=== PATIENT | male | born 1955 | race Caucasian/White ===

== ENCOUNTER 2018-05-05 07:12 | Day surgery (SDC) | payer OTHER ==
[2018-05-04 10:59] VITALS: BMI 29.2
== END 2018-05-05 09:16 | disposition home or self-care (01) ==
LOC: JASU-SURG 07:12
PROVIDERS: ATTEND Podiatrist Foot Surgery
PROC: 0QBQ0ZZ Excision of Right Toe Phalanx, Open Approach (ICD-10-PCS; principal; 2018-05-05)
DX: Z53.8 Procedure and treatment not carried out for other reasons (principal)
CPT/HCPCS: 73630-TC-RT-FY; 82962

== ENCOUNTER 2020-05-23 04:46 | Day surgery (SDC) | payer OTHER ==
[2020-05-22 10:25] VITALS: BMI 29.9
[2020-05-23] MEDS ORDERED: PROPOFOL 20 ML ONE ×3 (07:26→08:57)
[2020-05-23] MEDS ORDERED: MIDAZOLAM HCL 2 MG/2 ML SINGLE DOSE VIAL ONE (07:26)
[2020-05-23] MEDS ORDERED: SUCCINYLCHOLINE CHLORIDE 200 MG/10 ML SYRINGE ONE (07:26)
[2020-05-23] MEDS ORDERED: ceFAZolin SODIUM 1 GM VIAL ONE (07:29)
[2020-05-23] MEDS ORDERED: SODIUM CHLORIDE 0.9% P/F 10 ML VIAL IJ ONE (07:29)
[2020-05-23] MEDS ORDERED: LIDOCAINE HCL/PF 2% SDV 5ML VIAL ONE (07:29)
[2020-05-23] MEDS ORDERED: DEXAMETHASONE SOD PHOSPHATE 4 MG/1 ML VIAL ONE (07:55)
[2020-05-23] MEDS ORDERED: LIDOCAINE HCL 1%, 10 MG/ML (20ML VIAL) ONE (07:56)
[2020-05-23] MEDS ORDERED: ceFAZolin SODIUM 1 GM VIAL IVPB ONE ×2 (08:30→09:36)
[2020-05-23] MEDS ORDERED: LIDOCAINE HCL 1%, 10 MG/ML (20ML VIAL) NR ONE (08:34)
[2020-05-23] MEDS ORDERED: BUPIVACAINE HCL/PF 0.5% (5MG/ML) 10 ML VIAL IJ ONE (08:34)
[2020-05-23] MEDS ORDERED: BACITRACIN 50,000 UNITS VIAL TP ONE (09:00)
[2020-05-23] MEDS ORDERED: KETOROLAC TROMETHAMINE 30 MG/1 ML VIAL ONE (09:37)
[2020-05-23] MEDS ORDERED: DEXAMETHASONE SOD PHOSPHATE 4 MG/1 ML VIAL NR ONE (09:40)
[2020-05-23] MEDS ORDERED: BUPIVACAINE HCL/PF 0.5% (5MG/ML) 10 ML VIAL NR ONE (09:40)
[2020-05-23 10:15] VITALS: TEMP 97
[2020-05-23 12:08] VITALS: BP 145/71; PULSE 64
--- NOTE | 2020-05-23 12:16 | OP ---
Operative Note - Note: Operative Date: 05/23/20 Pre-Operative Diagnosis: Hallux limitus/valgs right foot. Hammer toe 2nd toe right foot Operation: Modified Marcelo Youngswick osteotomy with 2.4mm osteomed x 20mm screw fixation. Arthroplasty proximal interphalangeal joint 2nd toe right foot. Medial exostectomy right remaining proximal phalanx 2nd toe right foot. Findings: hypertrophic bone and soft tissue Implants: 2.4mm osteomed screw patially threaded non cannulated 20mm Post-Operative Diagnosis: Same as Pre-op Surgeon: Parmjit Birch Motor Assembler: Salbador Nam Specimens Removed: bone and soft tissue Estimated Blood Loss (mls): 5
--- NOTE | 2020-05-25 21:12 | OP ---
DATE OF OPERATION: 05/23/2020 SURGEON: Parmjit Birch DPM PENSION MANAGER: Salbador Nam DPM PREOPERATIVE DIAGNOSIS: Hallux limitus/valgus, right foot with hammertoe, 2nd toe, right foot. POSTOPERATIVE DIAGNOSIS: Hallux limitus/valgus, right foot with hammertoe, 2nd toe, right foot. PROCEDURE: Modified Marcelo-Youngswick bunionectomy with 2.4-mm screw fixation. ANESTHESIA: Local with sedation. DESCRIPTION OF PROCEDURE: After noting all preoperative vital signs to be within normal limits and after surgical consent was signed and witnessed, the patient was brought to the OR, placed on a table in supine position. An IV line had been started prior to the patient coming to the OR. Once the patient was in the OR, the patient was sedated, and a local infiltrate was given in a Moran block fashion around the 1st metatarsophalangeal joint, as well as the 2nd metatarsophalangeal joint. Once this was done, the patient's foot was then prepped and draped in usual sterile fashion, and a well-padded ankle tourniquet had been applied prior to the prep. Once the prep was done, the foot was elevated and exsanguinated after being draped. Once it was draped, the tourniquet was elevated to 250 mmHg on the right ankle. Once this was done, attention was directed to the 1st metatarsophalangeal joint where a 6-cm-long, curvilinear incision was created. This incision was deepened using sharp and blunt dissection to the level of the joint capsule. All unavoidable vessels were ligated in usual fashion. All other neurovascular structures were retracted out of the surgical site. At this time, an inverted L incision was created over the 1st metatarsophalangeal joint, exposing the dorsal medial eminence. Utilizing sharp and blunt dissection, the capsule was reflected proximally in an inverted L fashion, exposing the 1st metatarsophalangeal joint. The dorsal part of the submetatarsal joint was examined. It was noted to be hypertrophic, as well as the medial aspect. Utilizing a McGlamry elevator, the sesamoids were liberated from the plantar surface of the 1st metatarsal head. Once this was done, a sagittal saw was utilized to resect the medial eminence. Once this was done, the foot was placed on its side, and Marcelo osteotomy was created. The sagittal saw was then utilized to remove an additional wedge of bone on the dorsal cut, which modified it to a Youngswick. At this time, the capital fragment was moved proximally and impacted on the head, getting plantar flexion and shortening of the 1st metatarsal. A 0.062-inch K- wire was put into place at this time for temporary fixation. Once temporary fixation was put into place, the range of motion was monitored and noted to be excellent compared to prior to the osteotomy. Once this was done, utilizing strict AO technique, a 2.4-mm Osteomed partially-threaded, full-core screw was put into place. The 0.062 wire was resected. Toe was put through a range of motion, noted to have excellent alignment and range of motion. The wound was then flushed with copious amounts of sterile saline that had antibiotic added to it. The area then was once again examined. Utilizing a sagittal saw, the dorsal eminence was resected and sent down to Pathology. Utilizing a rotary maria luisa, the head was remodeled. No remaining spicules were noted. A flush was once again done utilizing antibiotic irrigation. The wound was then closed in layers using 2-0 Vicryl and 3-0 Vicryl for capsular closure, 4-0 Vicryl was utilized for subcutaneous closure, and 5-0 Vicryl was utilized in a subcuticular fashion to close the skin. Attention was then directed to the 2nd toe of the right foot, and 2 converging, semi-elliptical incisions approximately 2.5 cm in length were created over the proximal interphalangeal joint. A wedge of skin was removed and sent down to Pathology. All unavoidable vessels were ligated in usual fashion. All other neurovascular structures were retracted out of the surgical site. At this time, utilizing a 15 blade, the extensor tendon was transected from medial to lateral and reflected proximally. Soft tissue was now liberated from the medial and lateral aspects of the proximal head of the phalanx. Once this was done, exposing the head of the distal 1/3 of the phalanx, utilizing a sagittal saw, the distal 25% of the phalanx was resected and sent down to Pathology. At this time, it was noted that there was an exostosis remaining on the medial aspect of the remaining portion of the phalanx. Utilizing a sagittal saw in an angulated fashion, this was resected and sent down to Pathology as well. The wound was then flushed with copious amount of antibiotic irrigation. Toe was noted to be in excellent alignment. Utilizing 3-0 Vicryl, the extensor tendon was reapproximated. Skin was then closed using 4-0 nylon in a simple interrupted suture fashion. Steri-Strips were then applied to the 1st metatarsophalangeal joint area where the surgery had been performed. Postoperative injection was put into place. Betadine-soaked Adaptic, dry sterile gauze, and a clean dressing were then applied. Tourniquet was deflated, and capillary filling time was instantaneous to all 5 toes of the right foot. Patient tolerated the anesthesia and the procedure well. Patient returned to recovery room, vital signs stable and vascular status intact. ALESSANDRO Lund/[id number] MARKUS
--- NOTE | 2020-05-27 17:32 | PATH ---
Surgical Pathology Report Patient Name: MONSE TIERNEY [facility]. Rec. #: [id number] /Age/Gender: 1955 (Age: 65) / M Account: [id number] Location: [facility] SURGICAL Taken: 05/23/2020 Received: 05/23/2020 Reported: 05/27/2020 Physicians: Parmjit Birch DPM Specimen(s) Received A: BUNION RIGAT FOOT (YOUNG NE BUNION) B: HAMMER TOE SECOND DIGIT RIGHT FOOT Clinical History Hallux valgus hammertoe second digit right foot Final Diagnosis A. RIGHT FOOT BUNION (YOUNG NE BUNION), EXCISION: PORTIONS OF BONE WITH FATTY MARROW SHOWING FOCAL DEGENERATIVE CHANGE. B. HAMMERTOE SECOND DIGIT RIGHT FOOT, EXCISION: PORTIONS OF BONE WITH FATTY MARROW SHOWING FOCAL DEGENERATIVE CHANGE. SEGMENTS OF SKIN WITH HYPERKERATOSIS, PARAKERATOSIS, AND PYOGENIC GRANULOMA. Electronically Signed Norma Jarrell M.D. Gross Description A. Received in formalin labeled "right foot young ne bunion," are 5 philippe-yellow portions of bone ranging from 1.3 x 0.6 x 0.2 cm to 1.6 x 1.3 x 0.2 cm. Senior Software Quality Analyst sections are submitted in one cassette, following decalcification. B. Received in formalin labeled "hammertoe second digit right foot," are 2 philippe-yellow portions of bone measuring 0.5 x 0.3 x 0.1 cm and 1.1 x 0.7 x 0.5 cm. Separately received within the same container is a 1.5 x 0.7 cm philippe, elliptical, unoriented portion of skin excised to a depth of 0.3 cm. The epidermal surface displays a focal ulcerated lesion. Senior Software Quality Analyst sections are submitted in one cassette, following decalcification. DL/05/23/2020 saudi/05/23/2020
== END 2020-05-23 11:15 | disposition home or self-care (01) ==
LOC: JASU-SURG 04:46
PROVIDERS: ATTEND Podiatrist Foot Surgery
PROC: 0QSN04Z Reposition Right Metatarsal with Internal Fixation Device, Open Approach (ICD-10-PCS; principal; 2020-05-23 08:30)
PROC: 0QSN04Z Reposition Right Metatarsal with Internal Fixation Device, Open Approach (ICD-10-PCS; 2020-05-23 08:30)
DX: M20.11 Hallux valgus (acquired), right foot (principal); M20.5X1 Other deformities of toe(s) (acquired), right foot; M20.41 Other hammer toe(s) (acquired), right foot
CPT/HCPCS: 82962; 88304-TC; 88305-TC; 88311-TC

== ENCOUNTER 2022-12-09 10:53 | Inpatient (IN) | payer OTHER ==
[2022-12-09 11:28] VITALS: BMI 28.0
[2022-12-09 14:07] LABS: BASO % 0.9 % (0-2.0); EOS % 1.4 % (0-4.5); HEMATOCRIT 42.8 % (35.4-49); LYMPH % 22.3 % (8-40); MCH 26.6 pg (25.7-33.7); MCHC 32.8 g/dl (32.0-35.9); MEAN CELL VOLUME 81.1 fl (80-96); MEAN PLT VOLUME 8.1 fl (7.5-11.1); MONO % 8.8 % (3.8-10.2); NEUT % 66.6 % (42.8-82.8); PLATELET COUNT 259 10^3/uL (134-434); RBC 5.27 M/mm3 (4.00-5.60); RDW 14.4 % (11.9-15.9); WHITE BLOOD COUNT 8.3 K/mm3 (4.0-10.0)
[2022-12-09 14:16] LABS: INR 1.04 (0.83-1.09)
[2022-12-09 14:18] LABS: ACTIVATED PTT 28.7 SECONDS (25.2-36.5)
[2022-12-09 14:34] LABS: ALBUMIN 3.6 g/dl (3.4-5.0); BLOOD UREA NITROGEN 16.6 mg/dL (7-18)
[2022-12-09 14:37] LABS: CREATININE 0.9 mg/dL (0.55-1.3)
[2022-12-09 14:38] LABS: TOT PROT 6.8 g/dl (6.4-8.2)
[2022-12-09] MEDS: HEPARIN NA (PORCINE) 5,000 UNITS/ML 1ML VIAL SQ SCH ×2 (18:22→21:32)
[2022-12-09] MEDS: CEFTRIAXONE 2 GM in DEXTROSE 5%-WATER 100 ML IVPB SCH (18:22)
[2022-12-09] MEDS: INSULIN SLIDING SCALE (NOVOLOG) 1 VIAL SQ SCH ×2 (18:23→21:32)
[2022-12-09] MEDS ORDERED: ACETAMINOPHEN 325 MG TABLET (FP) PO PRN (20:54)
[2022-12-10] MEDS: HEPARIN NA (PORCINE) 5,000 UNITS/ML 1ML VIAL SQ SCH ×2 (05:29→17:23)
[2022-12-10] MEDS: INSULIN SLIDING SCALE (NOVOLOG) 1 VIAL SQ SCH ×3 (06:05→17:32)
[2022-12-10] MEDS: CEFTRIAXONE 2 GM in DEXTROSE 5%-WATER 100 ML IVPB SCH (10:42)
[2022-12-10] MEDS: SERTRALINE HCL 50 MG TABLET (FP) PO SCH (10:43)
[2022-12-10] MEDS: LOSARTAN POTASSIUM 50 MG TABLET PO SCH (10:43)
[2022-12-10] MEDS: COLLAGENASE CLOSTRIDIUM HIST. 30 GRAMS TUBE TP SCH (10:43)
[2022-12-10 11:05] LABS: BASO % 0.7 % (0-2.0); EOS % 1.7 % (0-4.5); HEMOGLOBIN 14.2 GM/dL (11.7-16.9); LYMPH % 22.6 % (8-40); MCH 26.6 pg (25.7-33.7); MEAN CELL VOLUME 80.5 fl (80-96); MEAN PLT VOLUME 7.9 fl (7.5-11.1); MONO % 8.8 % (3.8-10.2); NEUT % 66.2 % (42.8-82.8); PLATELET COUNT 242 10^3/uL (134-434); RBC 5.34 M/mm3 (4.00-5.60); RDW 14.1 % (11.9-15.9); WHITE BLOOD COUNT 6.5 K/mm3 (4.0-10.0)
[2022-12-10 11:21] LABS: ALBUMIN 3.5 g/dl (3.4-5.0); BLOOD UREA NITROGEN 18.2 mg/dL (7-18); CALCIUM 8.9 mg/dL (8.5-10.1); MAGNESIUM 2.1 mg/dL (1.8-2.4)
[2022-12-10 11:24] LABS: CREATININE 0.7 mg/dL (0.55-1.3); PHOSPHOROUS 2.8 mg/dL (2.5-4.9)
[2022-12-10 11:26] LABS: BILIRUBIN,TOTAL 1.4 mg/dL (0.2-1); TOT PROT 6.6 g/dl (6.4-8.2)
[2022-12-10] MEDS ORDERED: traMADol HCL 50 MG TABLET PO PRN (12:05)
[2022-12-10] MEDS ORDERED: VANCOMYCIN/WATER 1250 MG 1,250 MG/250 ML BAG IVPB SCH ×2 (13:45→18:00)
[2022-12-11] MEDS: HEPARIN NA (PORCINE) 5,000 UNITS/ML 1ML VIAL SQ SCH ×4 (00:12→22:41)
[2022-12-11] MEDS: INSULIN (LEVEMIR) 100 UNITS/ML UNITS SQ SCH ×3 (00:13→22:38)
[2022-12-11] MEDS: INSULIN SLIDING SCALE (NOVOLOG) 1 VIAL SQ SCH ×5 (00:13→22:37)
[2022-12-11] MEDS: COLLAGENASE CLOSTRIDIUM HIST. 30 GRAMS TUBE TP SCH (09:42)
[2022-12-11] MEDS: SERTRALINE HCL 50 MG TABLET (FP) PO SCH (09:42)
[2022-12-11] MEDS: LOSARTAN POTASSIUM 50 MG TABLET PO SCH (09:42)
[2022-12-11] MEDS: PIPERACILLIN/TAZOB 3.375 GM 3.375 GM in DEXTROSE 5%-WATER - 50 ML IVPB SCH ×2 (13:42→17:13)
[2022-12-11] MEDS: DOXYCYCLINE HYCLATE 100 MG CAPSULE PO SCH (17:12)
[2022-12-12] MEDS: PIPERACILLIN/TAZOB 3.375 GM 3.375 GM in DEXTROSE 5%-WATER - 50 ML IVPB SCH ×3 (02:47→17:27)
[2022-12-12] MEDS: HEPARIN NA (PORCINE) 5,000 UNITS/ML 1ML VIAL SQ SCH ×3 (06:27→22:25)
[2022-12-12] MEDS: metFORMIN HCL 500 MG TABLET (FP) PO SCH ×2 (06:27→16:45)
[2022-12-12] MEDS: INSULIN SLIDING SCALE (NOVOLOG) 1 VIAL SQ SCH ×4 (06:28→21:38)
[2022-12-12] MEDS: INSULIN (LEVEMIR) 100 UNITS/ML UNITS SQ SCH ×2 (06:28→21:38)
[2022-12-12] MEDS: LOSARTAN POTASSIUM 50 MG TABLET PO SCH (09:28)
[2022-12-12] MEDS: SERTRALINE HCL 50 MG TABLET (FP) PO SCH (09:29)
[2022-12-12] MEDS: DOXYCYCLINE HYCLATE 100 MG CAPSULE PO SCH ×2 (09:29→17:26)
[2022-12-12] MEDS: COLLAGENASE CLOSTRIDIUM HIST. 30 GRAMS TUBE TP SCH (12:52)
[2022-12-13] MEDS: PIPERACILLIN/TAZOB 3.375 GM 3.375 GM in DEXTROSE 5%-WATER - 50 ML IVPB SCH ×3 (01:44→10:06)
[2022-12-13] MEDS: HEPARIN NA (PORCINE) 5,000 UNITS/ML 1ML VIAL SQ SCH ×3 (05:53→21:42)
[2022-12-13] MEDS: metFORMIN HCL 500 MG TABLET (FP) PO SCH ×2 (06:06→16:06)
[2022-12-13] MEDS: INSULIN SLIDING SCALE (NOVOLOG) 1 VIAL SQ SCH ×4 (06:46→21:41)
[2022-12-13] MEDS: INSULIN (LEVEMIR) 100 UNITS/ML UNITS SQ SCH ×2 (06:46→21:42)
[2022-12-13] MEDS: LOSARTAN POTASSIUM 50 MG TABLET PO SCH (10:01)
[2022-12-13] MEDS: SERTRALINE HCL 50 MG TABLET (FP) PO SCH (10:01)
[2022-12-13] MEDS: DOXYCYCLINE HYCLATE 100 MG CAPSULE PO SCH ×2 (10:01→17:13)
[2022-12-13] MEDS: COLLAGENASE CLOSTRIDIUM HIST. 30 GRAMS TUBE TP SCH (10:03)
[2022-12-13] MEDS: levoFLOXacin 750 MG TABLET PO SCH (11:21)
[2022-12-14] MEDS: HEPARIN NA (PORCINE) 5,000 UNITS/ML 1ML VIAL SQ SCH ×2 (05:26→15:04)
[2022-12-14] MEDS: INSULIN (LEVEMIR) 100 UNITS/ML UNITS SQ SCH (06:24)
[2022-12-14] MEDS: metFORMIN HCL 500 MG TABLET (FP) PO SCH ×2 (06:24→17:04)
[2022-12-14] MEDS: INSULIN SLIDING SCALE (NOVOLOG) 1 VIAL SQ SCH ×3 (06:26→17:34)
[2022-12-14 09:54] VITALS: RESP 18
[2022-12-14] MEDS: LOSARTAN POTASSIUM 50 MG TABLET PO SCH (09:54)
[2022-12-14] MEDS: DOXYCYCLINE HYCLATE 100 MG CAPSULE PO SCH ×2 (09:54→17:04)
[2022-12-14] MEDS: SERTRALINE HCL 50 MG TABLET (FP) PO SCH (09:54)
[2022-12-14] MEDS: COLLAGENASE CLOSTRIDIUM HIST. 30 GRAMS TUBE TP SCH (09:55)
[2022-12-14] MEDS: levoFLOXacin 750 MG TABLET PO SCH (11:11)
[2022-12-14 14:08] VITALS: BP 132/72; PULSE 80; TEMP 97.8
== END 2022-12-14 17:40 | disposition home or self-care (01) | DRG 638 ==
LOC: JER 10:53 → JERBED 12:39 → J5S 17:19 → J7W 12-10 14:24
PROVIDERS: ADMIT Internal Medicine; ATTEND Family Medicine
DX: E11.621 Type 2 diabetes mellitus with foot ulcer (principal); L97.528 Non-pressure chronic ulcer of other part of left foot with other specified severity; L97.518 Non-pressure chronic ulcer of other part of right foot with other specified severity; H35.30 Unspecified macular degeneration; L03.115 Cellulitis of right lower limb; I10 Essential (primary) hypertension; L84 Corns and callosities; B35.1 Tinea unguium
CPT/HCPCS: 0241U-QW; 36415; 73630-TC-LT; 73630-TC-RT-FY; 73718-TC-RT; 80053; 82962; 83036; 83735; 84100; 85025; 85610; 85651; 85730; 86140; 86850; 86900; 86901; 87040; 87070; 87186; 87205; 93005; 93010; 99285-25; J1644

== ENCOUNTER 2023-01-14 08:44 | Inpatient (IN) | payer OTHER ==
[2023-01-14] MEDS ORDERED: ALBUTEROL SO4 2.5/IPRATROPIUM 0.5 INH SOL 3 ML VIAL.NEB. NEB ONE (09:29)
[2023-01-14] MEDS ORDERED: PIPERACILLIN/TAZOB 4.5 GM 4.5 GM in DEXTROSE 5%-WATER 100 ML IVPB ONE (09:33)
[2023-01-14] MEDS ORDERED: VANCOMYCIN 1 GM in D5W (PRE-DOCKED) 1,000 MG/250 ML IVPB ONE (09:33)
[2023-01-14] MEDS ORDERED: PIPERACILLIN/TAZOB 4.5 GM 4.5 GM/100 ML BAG IVPB ONE (10:02)
[2023-01-14] MEDS ORDERED: VANCOMYCIN/WATER FOR INJ (PEG) 1,000 MG/200 ML BAG IVPB ONE (10:02)
[2023-01-14 11:17] LABS: BASO % 0.5 % (0-2.0); EOS % 0.9 % (0-4.5); HEMATOCRIT 38.5 % (35.4-49); HEMOGLOBIN 13.2 GM/dL (11.7-16.9); LYMPH % 17.8 % (8-40); MCH 27.8 pg (25.7-33.7); MCHC 34.3 g/dl (32.0-35.9); MEAN CELL VOLUME 81.2 fl (80-96); MEAN PLT VOLUME 8.1 fl (7.5-11.1); MONO % 9.8 % (3.8-10.2); PLATELET COUNT 233 10^3/uL (134-434); RBC 4.74 M/mm3 (4.00-5.60); RDW 14.6 % (11.9-15.9); WHITE BLOOD COUNT 10.6 K/mm3 (4.0-10.0)
[2023-01-14 11:26] LABS: INR 1.11 (0.83-1.09); PROTHROMBIN TIME (PATIENT) 12.9 SEC (9.7-13.0)
[2023-01-14 11:29] LABS: ACTIVATED PTT 28.3 SECONDS (25.2-36.5)
[2023-01-14 11:49] LABS: ALBUMIN 3.3 g/dl (3.4-5.0); BLOOD UREA NITROGEN 14.2 mg/dL (7-18)
[2023-01-14 11:52] LABS: CREATININE 0.7 mg/dL (0.55-1.3); ERYTHROCYTE SEDIMENTATION RATE 34 mm/hr (0-20)
[2023-01-14 11:53] LABS: BILIRUBIN,TOTAL 1.2 mg/dL (0.2-1)
[2023-01-14 11:54] LABS: TOT PROT 6.6 g/dl (6.4-8.2)
[2023-01-14] MEDS ORDERED: ACETAMINOPHEN 325 MG TABLET (FP) PO PRN (15:17)
[2023-01-14 16:51] VITALS: BMI 25.7
[2023-01-14] MEDS: INSULIN SLIDING SCALE (NOVOLOG) 1 VIAL SQ SCH ×2 (17:03→21:21)
[2023-01-14] MEDS: metFORMIN HCL 500 MG TABLET (FP) PO SCH (17:07)
[2023-01-14] MEDS: PIPERACILLIN/TAZOB 3.375 GM 3.375 GM in DEXTROSE 5%-WATER - 50 ML IVPB SCH (19:18)
[2023-01-14] MEDS: VANCOMYCIN/WATER FOR INJ (PEG) 1,000 MG/200 ML BAG IVPB SCH (21:02)
[2023-01-14] MEDS: INSULIN (LEVEMIR) 100 UNITS/ML UNITS SQ SCH (21:22)
[2023-01-15] MEDS: PIPERACILLIN/TAZOB 3.375 GM 3.375 GM in DEXTROSE 5%-WATER - 50 ML IVPB SCH ×2 (01:26→10:58)
[2023-01-15] MEDS: sitaGLIPtin PHOSPHATE 50 MG TABLET PO SCH (06:15)
[2023-01-15] MEDS: INSULIN (LEVEMIR) 100 UNITS/ML UNITS SQ SCH ×3 (06:15→21:42)
[2023-01-15] MEDS: metFORMIN HCL 500 MG TABLET (FP) PO SCH ×2 (06:15→16:34)
[2023-01-15] MEDS: INSULIN SLIDING SCALE (NOVOLOG) 1 VIAL SQ SCH ×4 (06:23→21:42)
[2023-01-15] MEDS: VANCOMYCIN/WATER FOR INJ (PEG) 1,000 MG/200 ML BAG IVPB SCH (09:22)
[2023-01-15] MEDS: LOSARTAN POTASSIUM 50 MG TABLET PO SCH (09:27)
[2023-01-15] MEDS: SERTRALINE HCL 50 MG TABLET (FP) PO SCH (09:27)
[2023-01-15 09:32] LABS: BASO % 0.4 % (0-2.0); EOS % 1.7 % (0-4.5); HEMOGLOBIN 13.2 GM/dL (11.7-16.9); LYMPH % 17.2 % (8-40); MCH 26.7 pg (25.7-33.7); MCHC 33.1 g/dl (32.0-35.9); MEAN CELL VOLUME 80.7 fl (80-96); MEAN PLT VOLUME 8.5 fl (7.5-11.1); MONO % 10.6 % (3.8-10.2); NEUT % 70.1 % (42.8-82.8); PLATELET COUNT 264 10^3/uL (134-434); RBC 4.95 M/mm3 (4.00-5.60); RDW 14.1 % (11.9-15.9); WHITE BLOOD COUNT 7.2 K/mm3 (4.0-10.0)
[2023-01-15 09:41] LABS: CHOLESTEROL 181 mg/dL (50-200); TRIGLYCERIDES 106 mg/dL (0-150)
[2023-01-15 09:42] LABS: LDL CHOLESTEROL (ONLY SJRH) 112 mg/dL (5-100)
[2023-01-15 09:44] LABS: HDL CHOLESTEROL 55 mg/dL (40-60)
[2023-01-15] MEDS ORDERED: INSULIN (NOVOLOG) ASPART 100 UNITS/ML 10ML VIAL ONE ×3 (11:47→21:41)
[2023-01-15] MEDS: COLLAGENASE CLOSTRIDIUM HIST. 30 GRAMS TUBE TP SCH (14:12)
[2023-01-15] MEDS: AMPICILLIN NA/SULBACTAM NA 3 GM in SODIUM CHLORIDE 100 ML IVPB SCH (18:41)
[2023-01-15] MEDS: HEPARIN NA (PORCINE) 5,000 UNITS/ML 1ML VIAL SQ SCH (21:49)
[2023-01-16] MEDS: AMPICILLIN NA/SULBACTAM NA 3 GM in SODIUM CHLORIDE 100 ML IVPB SCH ×3 (02:17→17:27)
[2023-01-16] MEDS: metFORMIN HCL 500 MG TABLET (FP) PO SCH ×2 (06:16→17:27)
[2023-01-16] MEDS: sitaGLIPtin PHOSPHATE 50 MG TABLET PO SCH (06:16)
[2023-01-16] MEDS: INSULIN (LEVEMIR) 100 UNITS/ML UNITS SQ SCH ×2 (06:21→21:43)
[2023-01-16] MEDS: HEPARIN NA (PORCINE) 5,000 UNITS/ML 1ML VIAL SQ SCH ×2 (09:52→21:43)
[2023-01-16] MEDS: LOSARTAN POTASSIUM 50 MG TABLET PO SCH (09:52)
[2023-01-16] MEDS: SERTRALINE HCL 50 MG TABLET (FP) PO SCH (09:52)
[2023-01-16] MEDS: COLLAGENASE CLOSTRIDIUM HIST. 30 GRAMS TUBE TP SCH (09:53)
[2023-01-16 10:50] LABS: BASO % 0.3 % (0-2.0); EOS % 1.4 % (0-4.5); HEMOGLOBIN 14.2 GM/dL (11.7-16.9); LYMPH % 8.9 % (8-40); MCH 26.7 pg (25.7-33.7); MEAN CELL VOLUME 80.8 fl (80-96); MEAN PLT VOLUME 8.4 fl (7.5-11.1); MONO % 10.2 % (3.8-10.2); NEUT % 79.2 % (42.8-82.8); PLATELET COUNT 289 10^3/uL (134-434); RBC 5.32 M/mm3 (4.00-5.60); RDW 14.3 % (11.9-15.9); WHITE BLOOD COUNT 7.8 K/mm3 (4.0-10.0)
[2023-01-16 11:21] LABS: CALCIUM 9.4 mg/dL (8.5-10.1)
[2023-01-16 11:23] LABS: BLOOD UREA NITROGEN 14.1 mg/dL (7-18)
[2023-01-16 11:26] LABS: CREATININE 0.7 mg/dL (0.55-1.3)
[2023-01-16] MEDS: INSULIN SLIDING SCALE (NOVOLOG) 1 VIAL SQ SCH ×2 (11:54→17:37)
[2023-01-17] MEDS: AMPICILLIN NA/SULBACTAM NA 3 GM in SODIUM CHLORIDE 100 ML IVPB SCH ×2 (01:22→10:24)
[2023-01-17 05:37] VITALS: RESP 18
[2023-01-17] MEDS: INSULIN SLIDING SCALE (NOVOLOG) 1 VIAL SQ SCH ×5 (06:18→21:42)
[2023-01-17] MEDS: metFORMIN HCL 500 MG TABLET (FP) PO SCH ×2 (06:22→16:45)
[2023-01-17] MEDS: sitaGLIPtin PHOSPHATE 50 MG TABLET PO SCH (06:22)
[2023-01-17] MEDS: INSULIN (LEVEMIR) 100 UNITS/ML UNITS SQ SCH ×2 (06:51→21:42)
[2023-01-17] MEDS: SERTRALINE HCL 50 MG TABLET (FP) PO SCH (10:12)
[2023-01-17] MEDS: LOSARTAN POTASSIUM 50 MG TABLET PO SCH (10:12)
[2023-01-17] MEDS: HEPARIN NA (PORCINE) 5,000 UNITS/ML 1ML VIAL SQ SCH ×2 (10:12→21:43)
[2023-01-17] MEDS: COLLAGENASE CLOSTRIDIUM HIST. 30 GRAMS TUBE TP SCH (10:50)
[2023-01-17] MEDS: AMOX TR/POT CLAV 875MG/125MG TABLETS (FP) PO SCH (16:45)
[2023-01-18] MEDS: INSULIN SLIDING SCALE (NOVOLOG) 1 VIAL SQ SCH ×3 (06:25→12:17)
[2023-01-18] MEDS: sitaGLIPtin PHOSPHATE 50 MG TABLET PO SCH (06:25)
[2023-01-18] MEDS: metFORMIN HCL 500 MG TABLET (FP) PO SCH (06:25)
[2023-01-18] MEDS: INSULIN (LEVEMIR) 100 UNITS/ML UNITS SQ SCH (06:25)
[2023-01-18 08:48] VITALS: BP 136/77; PULSE 69; TEMP 98.1
[2023-01-18] MEDS: SERTRALINE HCL 50 MG TABLET (FP) PO SCH (10:30)
[2023-01-18] MEDS: AMOX TR/POT CLAV 875MG/125MG TABLETS (FP) PO SCH (10:31)
[2023-01-18] MEDS: LOSARTAN POTASSIUM 50 MG TABLET PO SCH (10:31)
[2023-01-18] MEDS: HEPARIN NA (PORCINE) 5,000 UNITS/ML 1ML VIAL SQ SCH (10:31)
[2023-01-18] MEDS: COLLAGENASE CLOSTRIDIUM HIST. 30 GRAMS TUBE TP SCH (12:16)
== END 2023-01-18 13:05 | disposition home or self-care (01) | DRG 603 ==
LOC: JER 08:44 → JERBED 12:40 → J6S 16:32
PROVIDERS: ADMIT Family Medicine; ATTEND Family Medicine
DX: L03.115 Cellulitis of right lower limb (principal); E11.621 Type 2 diabetes mellitus with foot ulcer; I10 Essential (primary) hypertension
CPT/HCPCS: 0241U-QW; 36415; 71045-TC-FY; 73630-TC-RT-FY; 80048; 80053; 80061; 82962; 83036; 85025; 85610; 85651; 85730; 86140; 86850; 86900; 86901; 87040; 87070; 87186; 87205; 93005; 93010; 99285-25; G0463-25; J1644

== ENCOUNTER 2023-03-05 04:33 | Day surgery (SDC) | payer OTHER ==
[2023-03-03 17:52] VITALS: BMI 27.0
[2023-03-05] MEDS ORDERED: ACETAMINOPHEN 500 MG TABLET (FP) PO PRN (08:08)
[2023-03-05] MEDS ORDERED: oxyCODONE HCL 5 MG TABLET PO PRN (08:08)
[2023-03-05] MEDS ORDERED: ONDANSETRON 4 MG/2 ML VIAL IVPUSH PRN (08:08)
[2023-03-05] MEDS ORDERED: PROMETHAZINE HCL 25 MG/1 ML VIAL IVPB PRN (08:08)
[2023-03-05] MEDS ORDERED: LACTATED RINGERS SOLUTION 1,000 ML IV SCH (08:15)
[2023-03-05] MEDS ORDERED: BUPIVACAINE HCL/PF 0.5% (5MG/ML) 10 ML VIAL ONE ×2 (08:50→08:52)
[2023-03-05] MEDS ORDERED: LIDOCAINE HCL 1%, 10 MG/ML (10ML VIAL) MDV ONE (08:51)
[2023-03-05] MEDS ORDERED: DEXAMETHASONE SOD PHOSPHATE 4 MG/1 ML VIAL ONE (08:51)
[2023-03-05] MEDS ORDERED: MIDAZOLAM HCL 2 MG/2 ML SINGLE DOSE VIAL ONE (09:17)
[2023-03-05] MEDS ORDERED: PROPOFOL 20 ML ONE ×2 (09:17→09:49)
[2023-03-05] MEDS ORDERED: ceFAZolin SODIUM 1 GM VIAL IVPB ONE (09:25)
[2023-03-05] MEDS ORDERED: BUPIVACAINE HCL/PF 0.5% (5MG/ML) 10 ML VIAL IJ ONE (09:28)
[2023-03-05] MEDS ORDERED: LIDOCAINE 1% P/F 10 MG/ML VIAL INF ONE (09:28)
[2023-03-05] MEDS ORDERED: BUPIVACAINE HCL/PF 0.5% (5 MG/ML) 30 ML VIAL IJ ONE (10:02)
[2023-03-05] MEDS ORDERED: DEXAMETHASONE SOD PHOSPHATE 4 MG/1 ML VIAL IVPUSH ONE (10:02)
[2023-03-05 12:22] VITALS: PULSE 68
[2023-03-05 12:23] VITALS: BP 130/60; RESP 20; TEMP 97
== END 2023-03-05 12:24 | disposition home or self-care (01) ==
LOC: JASU-SURG 04:33
PROVIDERS: ATTEND Podiatrist Foot Surgery
PROC: 0QBN0ZZ Excision of Right Metatarsal, Open Approach (ICD-10-PCS; principal; 2023-03-05 09:00)
DX: M89.371 Hypertrophy of bone, right ankle and foot (principal); M21.621 Bunionette of right foot
CPT/HCPCS: 73630-TC-RT-FY; 82962; 88304-TC; 88305-TC; 88311-TC; 94760